=== PATIENT | female | born 1970 | race Caucasian/White ===

== ENCOUNTER → 2023-09-27 10:26 | Outpatient (CLI) | payer OTHER, SELFPAY ==
[2023-09-27 11:02] LABS: Add Manual Diff / Slide Review NO; Basophils Absolute Auto 0 /uL (0-100); Basophils Percent Auto 0.9 % (0-2); Eosinophils Absolute Auto 100 /uL (0-450); Eosinophils Percent Auto 2.3 % (2-4); Hemoglobin 13.9 g/dL (12.0-16.0); Lymphocytes Absolute Auto 1700 /uL (1100-4500); Lymphocytes Percent Auto 35.8 % (25-40); Mean Corpuscular HGB Conc 33.8 % (30-36); Mean Corpuscular Hemoglobin 27.7 PG (26-34); Monocytes Absolute Auto 400 /uL (0-900); Neutrophils Absolute Auto 2500 /uL (1500-7000); Platelet Count 294 X10^3/uL (150-400); Red Cell Distribution Width 16.8 % (11.6-14.8); White Blood Cell Count 4.7 X10^3/uL (4.5-11.0)
[2023-09-27 11:33] LABS: HEMOLYSIS < 15 (0-50)
[2023-09-27 11:38] LABS: Alanine Aminotransferase 33 IU/L (<35); Albumin 4.5 g/dL (3.5-5.0); Albumin Globulin Ratio 1.6 (1.0-2.8); Alkaline Phosphatase 98 U/L (38-126); Aspartate Aminotransferase 39 IU/L (14-36); BUN Creatinine Ratio 19.3 (6-22); Bilirubin Total 0.5 mg/dL (0.2-1.3); Blood Urea Nitrogen 16 mg/dL (7-17); Calcium 9.5 mg/dL (8.4-10.2); Carbon Dioxide 28 mmol/L (22-32); Chloride 102 mmol/L (98-107); Cholesterol 264 mg/dL (140-199); Estimated Glomerular Filt Rate > 60 mL/min (>60); Globulin 2.8 g/dL (1.7-4.1); Glucose 98 mg/dL (70-100); HDL Cholesterol 104 mg/dL (40-60); LDL Cholesterol Calculated 144 mg/dL (<100); Potassium 4.2 mmol/L (3.4-5.1); Sodium 140 mmol/L (137-145); Total Protein 7.3 g/dL (6.3-8.2); Triglycerides 79 mg/dL (35-150)
[2023-09-27 12:30] LABS: Vitamin B12 Reflex MMA if <400 188 pg/mL (239-931)
[2023-09-27 13:06] LABS: Free T4, Direct Thyroxine 0.97 ng/dL (0.78-2.19)
[2023-09-27 13:08] LABS: Thyroid Stimulating Hormone 0.257 uIU/mL (0.47-4.68)
[2023-09-27 13:15] LABS: Hemoglobin A1C% w Est Avg Glu 5.5 % (4.0-6.0)
[2023-09-27 14:51] LABS: Creatinine Urine Random 314.5 mg/dL
[2023-09-27 14:55] LABS: Microalbumi Creatinin Ratio Ur 6.3 ug/mg CR (<30)
[2023-10-02 01:09] LABS: Methylmalonic Acid,Serum 1793 nmol/L (0-378)
== END ==
LOC: LAB 10:27
PROVIDERS: PCP Family Medicine; Referring Provider Family Medicine; Visit Provider Family Medicine
DX: I10 Essential (primary) hypertension (principal); R73.9 Hyperglycemia, unspecified; E78.5 Hyperlipidemia, unspecified; R53.83 Other fatigue; Z13.29 Encounter for screening for other suspected endocrine disorder; D51.9 Vitamin B12 deficiency anemia, unspecified
CPT/HCPCS: 36415; 80053; 80061; 82043; 82570; 82607; 83036; 83921; 84439; 84443; 85025; 86141

== ENCOUNTER → 2024-02-19 10:57 | Outpatient (CLI) | payer OTHER, SELFPAY | LOC: CAR 10:57 | PROVIDERS: PCP Family Medicine; Referring Provider Family Medicine; Visit Provider Family Medicine | DX: R00.2 Palpitations (principal); R06.02 Shortness of breath | CPT/HCPCS: 93246 ==

== ENCOUNTER → 2025-02-02 10:17 | Outpatient (CLI) | payer OTHER, SELFPAY ==
[2025-02-02 11:54] LABS: HEMOLYSIS < 15 (0-50); Iron 100 ug/dL (37-170)
[2025-02-02 11:56] LABS: Alanine Aminotransferase 37 IU/L (<35); Albumin 4.9 g/dL (3.5-5.0); Alkaline Phosphatase 120 U/L (38-126); Aspartate Aminotransferase 47 IU/L (14-36); BUN Creatinine Ratio 17.9 (6-22); Bilirubin Total 0.4 mg/dL (0.2-1.3); Blood Urea Nitrogen 14 mg/dL (7-17); Calcium 10.3 mg/dL (8.4-10.2); Carbon Dioxide 27 mmol/L (22-32); Chloride 102 mmol/L (98-107); Estimated Glomerular Filt Rate > 60 mL/min (>60); Globulin 2.4 g/dL (1.7-4.1); Glucose 88 mg/dL (70-99); HEMOLYSIS < 15 (0-50); Potassium 4.6 mmol/L (3.4-5.1); Sodium 138 mmol/L (137-145); Total Protein 7.3 g/dL (6.3-8.2)
[2025-02-02 12:06] LABS: Percent Iron Saturation 26 % (15-50); Total Iron Binding Capacity 379 ug/dL (265-497); Transferrin 344 mg/dL (206-381)
[2025-02-02 12:30] LABS: Ferritin 8 ng/mL (11-264)
[2025-02-02 17:08] LABS: Vitamin D 25 Hydroxy (D3) 29.4 ng/mL (30.0-100.0)
== END ==
PROVIDERS: PCP Family Medicine; Referring Provider Family Medicine; Visit Provider Family Medicine
DX: K91.89 Other postprocedural complications and disorders of digestive system (principal); D51.8 Other vitamin B12 deficiency anemias; D64.9 Anemia, unspecified; Z90.3 Acquired absence of stomach [part of]
CPT/HCPCS: 36415; 80053; 82306; 82728; 83540; 83550